=== PATIENT | male | born 1980 | race African-American/Black ===

== ENCOUNTER 2016-06-17 08:58 | Emergency (ER) | payer OTHER ==
[~2016-06-17] VITALS: Ht 180.3 cm; Wt 89.4 kg
[~2016-06-17 08:58] MED LIST: HYDROCHLOROTHIA25 M2 PO; NAPROSYN500 MG PO
[2016-06-17] MEDS ORDERED: SULFACETAMIDE 115 M1 OP (09:35)
[2016-06-17 09:46] VITALS: BP 184/112
[2016-06-17] MEDS ORDERED: HYDROCHLOROTHIA25 M2 PO ×2 (09:46→09:49)
[2016-07-15] MEDS ORDERED: IBUPROFEN 800800 M1 PO (09:32)
[2016-07-15] MEDS ORDERED: CLEOCIN HCL150 MG PO (09:32)
== END 2016-06-17 09:54 | disposition home or self-care (01) ==
LOC: ER 08:58
DX: S05.01XA Injury of conjunctiva and corneal abrasion without foreign body, right eye, initial encounter (principal); I10 Essential (primary) hypertension; J45.909 Unspecified asthma, uncomplicated; J42 Unspecified chronic bronchitis; F10.99 Alcohol use, unspecified with unspecified alcohol-induced disorder; X58.XXXA Exposure to other specified factors, initial encounter; Y93.89 Activity, other specified; Y92.89 Other specified places as the place of occurrence of the external cause; Y99.8 Other external cause status

== ENCOUNTER 2016-09-13 11:39 | Emergency (ER) | payer OTHER ==
[~2016-09-13] VITALS: Ht 180.3 cm; Wt 93.9 kg
[~2016-09-13 11:39] MED LIST changes: +CLEOCIN HCL150 MG PO; +IBUPROFEN 800800 M1 PO; +SULFACETAMIDE 115 M1 OP
[2016-09-13 11:42] VITALS: BP 163/108
[2016-09-13] MEDS ORDERED: CLEOCIN HCL150 MG PO (12:40)
== END 2016-09-13 13:00 ==
LOC: ER 11:39
DX: L02.211 Cutaneous abscess of abdominal wall (principal); L03.311 Cellulitis of abdominal wall; I10 Essential (primary) hypertension; J45.909 Unspecified asthma, uncomplicated; J42 Unspecified chronic bronchitis

== ENCOUNTER 2017-05-07 10:14 | Emergency (ER) | payer OTHER ==
[~2017-05-07] VITALS: Ht 180.3 cm; Wt 99.8 kg
[2017-05-07 10:31] VITALS: BP 167/100
[2017-05-07] MEDS ORDERED: NORCO 5-325 TA1 EACH PO (10:31)
[2017-05-07] MEDS ORDERED: PREDNISONE50 MG PO (10:31)
== END 2017-05-07 10:57 | disposition home or self-care (01) ==
LOC: ER 10:14
DX: G56.01 Carpal tunnel syndrome, right upper limb (principal); M25.531 Pain in right wrist; I10 Essential (primary) hypertension; J44.9 Chronic obstructive pulmonary disease, unspecified; J42 Unspecified chronic bronchitis

== ENCOUNTER 2017-11-08 05:42 | Inpatient (IN) | payer OTHER ==
[~2017-11-08] VITALS: Ht 180.3 cm; Wt 107.0 kg
[~2017-11-08 05:42] MED LIST changes: +NORCO 5-325 TA1 EACH PO; +PREDNISONE50 MG PO
[2017-11-08 05:44] VITALS: BP 138/87
[2017-11-08] MEDS ORDERED: NOHOMEMEDICATIONS (05:47)
[2017-11-08 06:15] LABS: ABSOLUTE NEUTROPHILS 6.8 thou/uL (1.4-8.2); BASOPHILS 0.4 % (0.0-2.0); EOSINOPHILS 2.1 % (0.0-3.0); HEMATOCRIT 42.5 % (42.0-52.0); HEMOGLOBIN 14.4 gm/dL (14.0-18.0); LYMPHOCYTES 30.5 % (24.0-44.0); MCH 32.1 pg (26.0-34.0); MCV 94.5 fL (80.0-100.0); MONOCYTES 10.1 % (1.0-8.0); PLATELET COUNT 242 thou/uL (150-400); POLYS 56.9 % (36.0-66.0); RBC 4.49 mil/uL (4.50-6.00); RDW 14.8 % (10.5-14.5)
[2017-11-08 06:18] LABS: CALCIUM 8.5 mg/dL (8.5-10.1); POTASSIUM 3.8 mmol/L (3.5-5.1)
[2017-11-08 06:24] LABS: ALBUMIN 3.4 g/dL (3.4-5.0); TOTAL BILIRUBIN 0.3 mg/dL (<0.1-1.0); TOTAL PROTEIN 7.5 g/dL (6.4-8.2)
[2017-11-08 07:33] LABS: URINE BILIRUBIN NEGATIVE (Negative); URINE BLOOD NEGATIVE (Negative); URINE CLARITY CLEAR; URINE COLOR YELLOW; URINE GLUCOSE-RANDOM* NEGATIVE (Negative); URINE KETONES NEGATIVE (Negative); URINE LEUKOCYTES-REFLEX NEGATIVE (Negative); URINE NITRITE-REFLEX NEGATIVE (Negative); URINE PROTEIN (DIPSTICK) NEGATIVE (Negative); URINE SPECIFIC GRAVITY >= 1.030 (1.005-1.035); URINE UROBILINOGEN 0.2 E.U./dl (0.2-1.0)
[2017-11-08 10:45] VITALS: BP 107/50
[2017-11-08 10:46] VITALS: BP 142/94
[2017-11-08 11:42] VITALS: BP 145/85
[2017-11-08] MEDS ORDERED: HYDROCHLOROTH12.5 M1 PO (12:51)
[2017-11-08 16:45] VITALS: BP 124/77
[2017-11-09 03:38] VITALS: BP 179/102
[2017-11-09 05:39] LABS: ABSOLUTE NEUTROPHILS 5.7 thou/uL (1.4-8.2); BASOPHILS 0.3 % (0.0-2.0); EOSINOPHILS 2.2 % (0.0-3.0); HEMOGLOBIN 13.4 gm/dL (14.0-18.0); MCH 31.8 pg (26.0-34.0); MCHC 33.6 g/dL (28.0-37.0); MCV 94.8 fL (80.0-100.0); MONOCYTES 9.5 % (1.0-8.0); PLATELET COUNT 201 thou/uL (150-400); RBC 4.22 mil/uL (4.50-6.00); RDW 14.6 % (10.5-14.5); WBC 9.3 thou/uL (4.0-11.0)
[2017-11-09 05:59] LABS: CALCIUM 8.3 mg/dL (8.5-10.1); CREATININE 1.1 mg/dL (0.7-1.3); MAGNESIUM 1.9 mg/dL (1.8-2.4); POTASSIUM 3.8 mmol/L (3.5-5.1)
[2017-11-09 07:05] VITALS: BP 168/81
[2017-11-09] MEDS ORDERED: AUGMENTIN 875-1 EACH PO (11:58)
[2017-11-09 12:07] VITALS: BP 168/81
== END 2017-11-09 13:12 | disposition home or self-care (01) | DRG 445 ==
LOC: ER 05:42 → EROBS 09:31 → 4E 10:58
PROVIDERS: Emergency Medicine; Nurse Practitioner
DX: K80.20 Calculus of gallbladder without cholecystitis without obstruction (principal); K56.7 Ileus, unspecified; N30.90 Cystitis, unspecified without hematuria; I10 Essential (primary) hypertension; J45.909 Unspecified asthma, uncomplicated; F17.210 Nicotine dependence, cigarettes, uncomplicated; Z79.899 Other long term (current) drug therapy
CPT/HCPCS: 10084

== ENCOUNTER 2018-09-23 14:17 | Inpatient (IN) | payer OTHER ==
[2018-09-23] VITALS (13 sets, daily range): BP systolic 130–200; BP diastolic 72–180
[~2018-09-23] VITALS: Ht 180.3 cm; Wt 109.8 kg
--- NOTE | ~2018-09-23 | HC ---
[facility] [place] [address] CONSULTATION Name: OLIMPIA ALFARO Room #: 210-P ADM IN M.R.#: [id number] Admission: 09/23/18 ������������������ Attend Phys: Gilberto Spencer MD Discharge: ������������������ Date of : 78 Report #: [id number] THIS REPORT FOR: //name// CC: [facility] physician/PCP Gilberto Spencer REASON FOR CONSULTATION: Hypertensive emergency. HISTORY OF PRESENT ILLNESS: The patient is a 38-year-old with history of hypertension diagnosed approximately 10 years ago, who presented to the hospital after experiencing worsening exertional dyspnea for the past 2 weeks. Not really reporting any major chest pains or chest tightness. He denies any PND or orthopnea. He denies presyncope or syncope. On admission, he was noted to have elevated blood pressure and was started on a drip and has been titrated to oral medications. We have been asked to further evaluate. REVIEW OF SYSTEMS: A 12-point review of systems was negative other than what I mentioned above. PAST MEDICAL HISTORY: 1. Hypertension. 2. Prior asthma. SOCIAL HISTORY: He smoke some marijuana as well. Works at [employer]. No excessive alcohol use. FAMILY HISTORY: Significant for father who had an aneurysm. Mother with breast cancer. ALLERGIES: None. MEDICATIONS: Had been on hydrochlorothiazide in the past. PHYSICAL EXAMINATION: VITAL SIGNS: Have been reviewed. GENERAL: He is in no acute distress. HEENT: Oropharynx is clear. NECK: Supple, no thyromegaly. HEART: Regular rate and rhythm with no murmurs, rubs, gallops. He does not have elevated JVD. LUNGS: Clear to auscultation bilaterally. ABDOMEN: Soft, nontender, nondistended with no hepatosplenomegaly. EXTREMITIES: No clubbing, cyanosis, edema. NEUROLOGIC: Cranial nerves 2-12 are intact. LABORATORY DATA: Have been reviewed including normal Troponins, normal creatinine. Potassium slightly low. CBC is normal. Chest x-ray, I reviewed, [facility] [address] [place] [address] CONSULTATION Name: OLIMPIA ALFAROEEM Room #: 210-P [facility] IN M.R.#: [id number] Admission: 09/23/18 ������������������ Attend Phys: Gilberto Spencer MD Discharge: ������������������ Date of : 78 Report #: [id number] shows LVH, but no pulmonary edema. Renal ultrasounds are normal. An echo is pending. ASSESSMENT: Hypertensive emergency. In summary, the patient is a gentleman presenting with hypertensive urgency/emergency. His blood pressure is improving. I have recommended that he undergo an echocardiogram. If this is normal, I do not think he requires an inpatient stress test. Given his normal troponins, I believe his 12-lead EKG findings are consistent with LVH and strain pattern. If he is looking better tomorrow, could potentially discharge if echo and blood pressure are improved. ��������������������������������������������� ���������������������������������������� By: ��������������������������������������������� [id number] Teodoro Bryson MD /amanda
[~2018-09-23 14:17] MED LIST changes: +AUGMENTIN 875-1 EACH PO; +HYDROCHLOROTH12.5 M1 PO; +NOHOMEMEDICATIONS
[2018-09-23 15:10] LABS: HEMATOCRIT 45.2 % (42.0-52.0); HEMOGLOBIN 15.5 gm/dL (14.0-18.0); MCH 31.7 pg (26.0-34.0); MCHC 34.2 g/dL (28.0-37.0); MCV 92.8 fL (80.0-100.0); RBC 4.87 mil/uL (4.50-6.00); WBC 11.5 thou/uL (4.0-11.0)
[2018-09-23 15:23] LABS: ANION GAP 10 mmol/L (7-16); BUN 13 mg/dL (7-18); CALCIUM 9.3 mg/dL (8.5-10.1); CHLORIDE 103 mmol/L (98-107); CO2 25 mmol/L (21-32); CREATININE 1.1 mg/dL (0.7-1.3); GLUCOSE 111 mg/dL (74-106); POTASSIUM 3.4 mmol/L (3.5-5.1); SODIUM 138 mmol/L (136-145)
[2018-09-23 15:31] LABS: TROPONIN-I <0.06 ng/mL (<0.06)
[2018-09-23 19:32] LABS: ALBUMIN 3.9 g/dL (3.4-5.0); DIRECT BILIRUBIN 0.1 mg/dL (<0.1-0.3); MAGNESIUM 1.9 mg/dL (1.8-2.4); PHOSPHORUS 3.5 mg/dL (2.5-4.9); TOTAL BILIRUBIN 0.7 mg/dL (<0.1-1.0); TOTAL PROTEIN 7.6 g/dL (6.4-8.2)
[2018-09-23] MEDS ORDERED: TYLENOL EXTRA500 MG PO (20:16)
[2018-09-23] MEDS ORDERED: ADVIL100 M2 PO (20:16)
[2018-09-24] VITALS (16 sets, daily range): BP systolic 112–196; BP diastolic 66–133
--- NOTE | 2018-09-24 03:21 | NUR ---
PT. ARRIVED AT SHIFT CHANGE; 1900; RECEIVED PT. ON BED; AOX4; NO C/O PAIN; SBP 180; CARDENE GTT STARTED; ABLE TO AMBULATE FROM BED TO BATHROOM WITHOUT AID; NO C/O DIZZINESS OR WEAKNESS; MEDICATION TITRATE PER CHART; AT 2330 SBP ON 120'S; MEDICATION TITRATE; D/C AT MIDNIGHT SBP ON THE 130'S; MEDICATION STOPPED; [employer] NOTIFIED; AT 0050 PT. C/O HEADACHE; SBP OVER 160; MEDICATION RE-STARTED AND TITRATED PER CHART; PRN PAIN MEDICATION GIVEN; PAIN RE-ASSESSMENT PT. SLEEPING; MONITORING SBP; ASSESSMENT CHARGED; FOLLOWING POC; WILL PASS ON REPORT.
[2018-09-24 05:33] LABS: HEMOGLOBIN 15.6 gm/dL (14.0-18.0); MCH 31.5 pg (26.0-34.0); MCHC 33.9 g/dL (28.0-37.0); MCV 92.9 fL (80.0-100.0); RBC 4.96 mil/uL (4.50-6.00); RDW 14.8 % (10.5-14.5); WBC 9.9 thou/uL (4.0-11.0)
[2018-09-24 06:00] LABS: ANION GAP 11 mmol/L (7-16); BUN 11 mg/dL (7-18); CALCIUM 8.7 mg/dL (8.5-10.1); CHLORIDE 100 mmol/L (98-107); CO2 24 mmol/L (21-32); CREATININE 0.9 mg/dL (0.7-1.3); GLUCOSE 123 mg/dL (74-106); MAGNESIUM 1.8 mg/dL (1.8-2.4); POTASSIUM 3.3 mmol/L (3.5-5.1); SODIUM 135 mmol/L (136-145); TROPONIN-I <0.06 ng/mL (<0.06)
[2018-09-24 08:04] LABS: URINE BILIRUBIN NEGATIVE (Negative); URINE BLOOD NEGATIVE (Negative); URINE CLARITY CLEAR; URINE COLOR YELLOW; URINE GLUCOSE-RANDOM* NEGATIVE (Negative); URINE KETONES NEGATIVE (Negative); URINE LEUKOCYTES NEGATIVE (Negative); URINE NITRITE NEGATIVE (Negative); URINE PROTEIN (DIPSTICK) NEGATIVE (Negative); URINE UROBILINOGEN 0.2 E.U./dl (0.2-1.0)
--- NOTE | 2018-09-24 08:44 | EKG ---
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 : 1980 Requested By: Le Bahena Order Number: [id number] MD: Teodoro Bryson Measurements Intervals [place] Rate: 90 P: 53 HI: 195 QRS: 94 QRSD: 90 T: 246 QT: 393 QTc: 481 Interpretive Statements Sinus rhythm Probable left atrial enlargement Borderline right axis deviation Probable left ventricular hypertrophy Anterior Q waves, possibly due to LVH Abnormal T, consider ischemia, diffuse leads similar to prior Electronically Signed On 09-24-2018 8:44:36 CDT by Teodoro Bryson [email or web address] ��������������������������������������������� <ELECTRONICALLY SIGNED> ���������������������������������������� By: Teodoro Bryson MD ��������������������������������������������� 09/24/18 0844 1629 1629 Teodoro Bryson MD /EPI
--- NOTE | 2018-09-24 08:44 | EKG ---
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 : 1980 Requested By: Le Bahena Order Number: [id number] MD: Teodoro Bryson Measurements Intervals [place] Rate: 85 P: 51 LA: 196 QRS: 80 QRSD: 90 T: 238 QT: 396 QTc: 471 Interpretive Statements Sinus rhythm Probable left atrial enlargement Left ventricular hypertrophy Abnormal T, consider ischemia or due to LVH Electronically Signed On 09-24-2018 8:44:10 CDT by Teodoro Bryson [email or web address] ��������������������������������������������� <ELECTRONICALLY SIGNED> ���������������������������������������� By: Teodoro Bryson MD ��������������������������������������������� 09/24/18 0844 1444 1444 Teodoro Bryson MD /PUNEET
--- NOTE | 2018-09-24 08:46 | EKG ---
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 : 1980 Requested By: Gilberto Spencer Order Number: [id number] MD: Teodoro Bryson Measurements Intervals [place] Rate: 67 P: 41 FL: 206 QRS: 85 QRSD: 91 T: 199 QT: 464 QTc: 490 Interpretive Statements Sinus rhythm Borderline prolonged FL interval Probable left atrial enlargement LVH with secondary repolarization abnormality Anterior ST elevation, probably due to LVH Borderline prolonged QT interval No previous ECG available for comparison Electronically Signed On 09-24-2018 8:45:56 CDT by Teodoro Bryson [email or web address] ��������������������������������������������� <ELECTRONICALLY SIGNED> ���������������������������������������� By: Teodoro Bryson MD ��������������������������������������������� 09/24/18 0845 1 Teodoro Bryson MD /PUNEET
--- NOTE | 2018-09-24 15:25 | 2DMMODE ---
[facility] [address] [facility] [address] [place] [address] 2 D/M-MODE ECHOCARDIOGRAM Name: OLIMPIA ALFARO Room #: 210-P ADM IN M.R.#: [id number] ������������� Admission: 09/23/18 ������������� Attend Phys: Gilberto Spencer MD Discharge: ��� ������������� ��� Date of : 78 Date of Service: 09/24/18 1524 �� Report #: [id number] �������� ��������������������������������������������[id number] THIS REPORT FOR: //name// APPROVED REPORT Study performed: 09/24/2018 08:17:41 EXAM: Comprehensive 2D, Doppler, and color-flow Echocardiogram Patient Location: Bedside Room #: 210 Status: routine BSA: 2.29 HR: 73 bpm BP: 141/88 mmHg Rhythm: NSR Other Information Study Quality: Adequate Indications Dyspnea Chest Pain Hypertension/HDD Smoker 2D Dimensions RVDd: 28.91 mm IVSd: 15.33 (7-11mm) LVOT Diam: 22.97 (18-24mm) LVDd: 52.85 mm PWd: 20.13 (7-11mm) Ascending Ao: 35.83 (22-36mm) LVDs: 47.99 (25-40mm) Aortic Root: 40.12 mm IVC: 9.00 mm Volumes Left Atrial Volume (Systole) Single Plane 4CH: 42.72 mL Single Plane 2CH: 55.15 mL LA ESV Index: 23.18 mL/m2 Aortic Valve AoV Peak Marcio.: 1.62 m/s AO Peak Gr.: 10.44 mmHg LVOT Max P.53 mmHg LVOT Max V: 1.06 m/s NUHA Vmax: 2.73 cm2 AI Vmax: 4.97 m/s AI [place]: 2.15 m/s2 [facility] [address] [place] [address] 2 D/M-MODE ECHOCARDIOGRAM Name: OLIMPIA ALFARO [place] Room #: [facility] IN .R.#: [id number] ������������� Admission: 09/23/18 ������������� Attend Phys: Gilberto Spencer MD Discharge: ��� ������������� ��� Date of : 78 Date of Service: 09/24/18 1524 �� Report #: [id number] �������� ��������������������������������������������[id number] PHT: 671.94 ms Mitral Valve E/A Ratio: 2.0 MV Decel. Time: 188.28 ms MV E Max Marcio.: 0.83 m/s MV A Marcio.: 0.41 m/s MV PHT: 54.60 ms Pulmonary Valve PV Peak Marcio.: 0.91 m/s PV Peak Gr.: 3.34 mmHg Pulmonary Vein P Vein S: 0.47 m/s P Vein D: 0.31 m/s P Vein S/D Ratio: 1.52 Tricuspid Valve RAP Estimate: 5.00 mmHg Left Ventricle Left ventricle is mildly dilated. Moderate concentric left ventricular hypertrophy. Left ventricular systolic function is mildly decreased. LVEF is 40-45% Moderate diastolic dysfunction is present (pseudonormal filling). Right Ventricle The right ventricle is normal size. The right ventricular systolic function is normal. Atria The left atrium size is normal. The right atrium size is normal. Aortic Valve The aortic valve is normal in structure, trileaflet. Mild to moderate aortic regurgitation. There is no aortic valvular stenosis. Mitral Valve The mitral valve is normal in structure. Mild mitral regurgitation. No evidence of mitral valve stenosis. Tricuspid Valve The tricuspid valve is normal in structure. There is no tricuspid valve regurgitation noted. Unable to assess PA pressure. [facility] [address] [place] [address] 2 D/M-MODE ECHOCARDIOGRAM Name: OLIMPIA ALFARO Room #: 210- ADM IN M.R.#: [id number] ������������� Admission: 09/23/18 ������������� Attend Phys: Gilberto Spencer MD Discharge: ��� ������������� ��� Date of : 78 Date of Service: 09/24/18 1524 �� Report #: [id number] �������� ��������������������������������������������[id number] Pulmonic Valve Pulmonic valve is not well visualized. Mild pulmonic regurgitation. Great Vessels Aortic root is dilated measuring 4 cm. The ascending aorta is normal in size. IVC is normal in size and collapses >50% with inspiration. Pericardium There is no pericardial effusion. <Conclusion> Left ventricle is mildly dilated. Moderate concentric left ventricular hypertrophy. Left ventricular systolic function is mildly decreased. LVEF is 40-45% Moderate diastolic dysfunction is present (pseudonormal filling). The right ventricle is normal size. Mild to moderate aortic regurgitation. Mild to moderate aortic regurgitation. There is no pericardial effusion. ��������������������������������������������� <ELECTRONICALLY SIGNED> ���������������������������������������� By: Teodoro Bryson MD ��������������������������������������������� 09/24/18 1524 1524 1524 Teodoro Bryson MD /INF
--- NOTE | 2018-09-24 18:25 | NUR ---
PT ALERT AND ORIENTED. HAD HIGH BP THIS SHIFT. DR. LYLES AWARE. BP MEDS ADJUSTED. CARDIOLOGY CONSULTED. WILL CONTINUE TO [facility].
[2018-09-25 00:10] VITALS: BP 151/102
--- NOTE | 2018-09-25 03:21 | NUR ---
ASSUMED PT CARE AT 1900. PT A/OX4, VITAL SIGNS STABLE AT REST, BP ELEVATED WITH ACTIVITY. BP CONTROLLED WITH MEDICATION. NO COMPLAINTS OF PAIN, PT SOA WITH EXERTION BUT RECOVERS APPROPRIATELY. PT RESTED WELL THROUGH THE NIGHT. FOLLOWING NURSING PLAN OF CARE. WILL CONTINUE TO MONITOR.
[2018-09-25 03:23] VITALS: BP 157/102
[2018-09-25 03:45] LABS: CALCIUM 9.4 mg/dL (8.5-10.1); CREATININE 1.1 mg/dL (0.7-1.3); MAGNESIUM 1.9 mg/dL (1.8-2.4); POTASSIUM 3.7 mmol/L (3.5-5.1)
[2018-09-25 08:45] VITALS: BP 162/107
[2018-09-25] MEDS ORDERED: HYDROCHLOROTHIA25 M1 PO (11:32)
[2018-09-25] MEDS ORDERED: K-DUR 20 MEQ T20 MEQ PO (11:32)
[2018-09-25] MEDS ORDERED: BENAZEPRIL HCL20 MG PO (11:32)
[2018-09-25 12:24] VITALS: BP 162/107
--- NOTE | 2018-09-25 12:48 | NUR ---
ASSESSMENT CHARTED. PT ALERT AND ORIENTED. DENIED HAVING PAIN. SCHEDULED BP MEDS GIVEN ORDERED. SOA NOTED WITH ACTIVITY. PT INSISTED TO BE DISCHARGED TODAY DESPITE DR. WEBSTER AND DR. LYLES'S RECOMMEDING CARDIAC CATHERIZATION IN AM. ORDERS GIVEN TO D/C PT TO HOME PER PATIENTS REQUEST. DISCHARGE INSTRUCTIONS GIVEN TO PT. PT VERBERLIZE UNDERSTANDING.
--- NOTE | 2018-09-25 13:50 | NUR ---
ORDER RECIEVED, PT ATTEMPTED TO SEE Pt FOR EVALUATION, HOWEVER Pt HAD ALREADY DISCHARGED FROM THE HOSPITAL.
== END 2018-09-25 12:55 | disposition home or self-care (01) | DRG 304 ==
LOC: ER 14:17 → EROBS 17:01 → 2N 19:00
PROVIDERS: Physician Assistant; ADMIT Internal Medicine
DX: I16.1 Hypertensive emergency (principal); I50.21 Acute systolic (congestive) heart failure; J45.909 Unspecified asthma, uncomplicated; F12.90 Cannabis use, unspecified, uncomplicated; E87.6 Hypokalemia; I11.0 Hypertensive heart disease with heart failure; F17.210 Nicotine dependence, cigarettes, uncomplicated; E66.9 Obesity, unspecified; Z68.33 Body mass index [BMI] 33.0-33.9, adult; Z79.899 Other long term (current) drug therapy; Z82.49 Family history of ischemic heart disease and other diseases of the circulatory system
CPT/HCPCS: 10194